=== PATIENT | female | born 1990 | race Two or more races ===

== ENCOUNTER 2023-03-09 10:17 | Emergency (ER) | payer MEDICAID ==
[~2023-03-09] VITALS: Ht 157.5 cm; Wt 59.4 kg
[2023-03-09 12:22] LABS: PREGNANCY TEST URINE QUAL NEGATIVE (NEGATIVE)
[2023-03-09] MEDS ORDERED: HYDROCODONE/APAP 5/325MG TABLET PO ONE (12:30)
[2023-03-09] MEDS ORDERED: IBUPROFEN 600 MG TABLET PO ONE (12:30)
[2023-03-09] MEDS ORDERED: IBUPROFEN 600 MG TABLET ONE (12:41)
[2023-03-09] MEDS ORDERED: HYDROCODONE/APAP 5/325MG TABLET ONE (12:41)
[2023-03-09] MEDS ORDERED: IBUP-1955 PO (14:00)
[2023-03-09] MEDS ORDERED: TDAP [DIPH/PERTUSSIS/TET] 0.5 ML VIAL IM ONE ×2 (14:00→14:04)
[2023-03-09 14:46] VITALS: BP 110/67; TEMP 98; O2SAT 96
== END 2023-03-09 14:48 | disposition home or self-care (01) ==
LOC: ER 10:26
DX: S06.0X0A Concussion without loss of consciousness, initial encounter (principal); S50.12XA Contusion of left forearm, initial encounter; S80.01XA Contusion of right knee, initial encounter; Z79.899 Other long term (current) drug therapy; Z60.2 Problems related to living alone; V89.2XXA Person injured in unspecified motor-vehicle accident, traffic, initial encounter; Y93.89 Activity, other specified; Y92.89 Other specified places as the place of occurrence of the external cause; Y99.8 Other external cause status
CPT/HCPCS: 70450-TC; 71045-TC; 73090-TC; 73564-TC; 73590-TC; 84703-TC; 90715